=== PATIENT | female | born 1955 | race African-American/Black ===

== ENCOUNTER 2017-11-14 17:50 | Emergency (ER) | payer OTHER ==
[~2017-11-14] VITALS: Ht 162.6 cm; Wt 99.3 kg
[2017-11-14 18:10] VITALS: Ht 162.6 cm; Wt 99.3 kg
[2017-11-14 20:42] VITALS: BP 125/99
== END 2017-11-14 20:42 | disposition home or self-care (01) ==
LOC: ED 17:50
DX: S90.211A Contusion of right great toe with damage to nail, initial encounter (principal); I10 Essential (primary) hypertension; E11.9 Type 2 diabetes mellitus without complications; X58.XXXA Exposure to other specified factors, initial encounter; Y93.89 Activity, other specified; Y99.8 Other external cause status; Y92.89 Other specified places as the place of occurrence of the external cause
CPT/HCPCS: 82962